=== PATIENT | male | born 1990 | race Two or more races ===

== ENCOUNTER 2025-08-29 00:54 | Emergency (ER) | payer BC, SELFPAY ==
--- NOTE | 2025-08-29 00:59 | EKG_ITS ---
[facility] Test Date: 2025-08-29 Pat Name: WENDY SEWELL Department: Room: - Gender: Male [employer] Supervisor: : [id number] Requested By: ED Temporary Provider Order Number: [id number] Reading MD: ED Temporary Provider Measurements Intervals [place] Rate: 87 P: 10 LA: 124 QRS: -4 QRSD: 106 T: 36 QT: 338 QTc: 408 Interpretive Statements SINUS RHYTHM No previous ECG available for comparison /store/S0/[id number]/ecg/[id number].pdf
[2025-08-29 01:10] VITALS: BP 136/88; PULSE 85; RESP 20; TEMP 38.1; O2SAT 97; BMI 30.3
--- NOTE | 2025-08-29 01:36 | PD.EDURI ---
Upper Respiratory Inf. RME/HPI General Chief Complaint: Fever Stated Complaint: 3 days of fever with sob, chestpain, & cough Time Seen by Provider: 08/29/25 01:29 Arrival date/time: 08/29/25 00:54 35M with history of HTN presents to ED with several days of cough, fevers/chills, SPANN, and some CP/SOB when coughing. Limitations: no limitations Related Data Previous Rx's ?Medication ?Instructions ?Recorded baclofen 20 mg tablet 20 mg PO Q8H PRN pain #30 tabs 03/09/19 methylprednisolone 4 mg tablets in See Rx Instructions PO PER PKG DIR 03/09/19 a dose pack (Medrol (Aravind)) #21 tabs cyclobenzaprine 10 mg tablet 10 mg PO TID #30 tabs 09/30/19 ibuprofen 800 mg tablet 800 mg PO TID #30 tabs 09/30/19 etodolac 400 mg tablet 400 mg PO Q8H PRN pain #30 tabs 10/04/19 methocarbamol 750 mg tablet 750 mg PO TID PRN pain #30 tabs 10/04/19 (Robaxin-750) tramadol 50 mg tablet 50 mg PO Q8H PRN pain #15 tabs 10/04/19 amoxicillin 875 mg-potassium 1 tab PO BID #14 tabs 07/20/23 clavulanate 125 mg tablet cetirizine 5 mg-pseudoephedrine ER 1 tab PO Q12H #14 tabs 07/20/23 120 mg tablet,extended release,12hr (Zyrtec-D) Allergies Allergy/AdvReac Type Severity Reaction Status Date / Time No Known Allergies Allergy Verified 08/29/25 00:58 Review of Systems Review of Systems Systems Reviewed: All systems reviewed, normal except as documented Constitutional Constitutional: Reports as per HPI, Reports chills, Reports fever(s) and Reports headache(s) ENT Ears, Nose, Mouth, and Throat: Reports headache(s) Cardiovascular Cardiovascular: Reports dyspnea Respiratory Respiratory: Reports as per HPI, Reports cough, Reports dyspnea and Reports pain with cough Neurologic Neurologic: Reports headache(s) Past Medical History Past Medical History CARDIAC: Negative Congestive Heart Failure RESPIRATORY: Negative Chronic Obstructive Pulmonary Disease (COPD) GENITOURINARY: Negative Renal Disease ENDOCRINE: Negative Diabetes Mellitus Type 1 or Diabetes Mellitus Type 2 Social History SMOKING STATUS: Never smoker ED Exam General Limitations: Present no limitations General appearance: Present alert and in no apparent distress Head Head exam: Present atraumatic ENT ENT exam: Present normal exam, normal oropharynx and mucous membranes moist Neck Neck exam: Present normal inspection, full ROM and trachea midline Chest Chest inspection: Present normal inspection and symmetric chest wall rise Respiratory Respiratory exam: Present normal lung sounds bilaterally Neurological Exam Neurological exam: Present alert and oriented X3 Psychiatric Psychiatric exam: Present normal affect and normal mood Skin Skin exam: Present warm, dry, intact and normal color Course Quality Measures none Orders Category Date Time Status Bedside COVID-19 Antigen Test NOW Care 08/29/25 01:34 Active Bedside Influenza A&B Antigen Test NOW Care 08/29/25 01:29 Completed EKG (ED ONLY) *Do not use* NOW Care 08/29/25 00:59 Completed EKG (ED Only) Stat Exams 08/29/25 00:59 Draft DiphenhydrAMINE [Benadryl] Med 08/29/25 01:29 Discontinued 25 mg PO X1 ONE Naproxen [Naprosyn] Med 08/29/25 01:29 Discontinued 500 mg PO X1 ONE Vital Signs Vital signs: Vital Signs Temperature 100.5 F H 08/29/25 01:10 Pulse Rate 85 08/29/25 01:10 Respiratory Rate 20 08/29/25 01:10 Blood Pressure 136/88 H 08/29/25 01:10 Pulse Oximetry (%) 97 08/29/25 01:10 Oxygen Delivery Method Room Air 08/29/25 01:10 O2 at 97% on RA and WNLs Upper Respiratory Infection MDM Narrative MDM Narrative:: 35M with history of HTN presents to ED with several days of cough, fevers/chills, SPANN, and some CP/SOB when coughing. Physical exam reveals clear oropharynx and lungs. Normal WOB. Patient is mildly febrile, but does not appear toxic. EKG is NSR. Bedside flu B+. Meds and clinical mental health counselor given. Patient data External records reviewed:: [facility] previous records Clinical information provided by:: patient Social determinants that could affect healthcare access:: none Patient has the following chronic illnesses:: none How is presenting disease/condition affected by chronic disease/condition?: no chronic disease Evaluation data The following diagnostics were reviewed and interpreted by me:: lab results and EKG tracing(s) Lab and/or radiology exams considered but not ordered:: ordered Interpretation Summary: above Medications / Prescriptions Medications or Prescriptions considered but not ordered:: ordered Medication administrations:: Medication Administration History Discontinued Medications Diphenhydramine HCl (Diphenhydramine 25 Mg Capsule) 25 mg PO X1 ONE Stop: 08/29/25 01:30 Naproxen (Naproxen 250 Mg Tablet) 500 mg PO X1 ONE Stop: 08/29/25 01:30 above Consultations Consultation(s) initiated? (list below): No Diagnosis Upper Respiratory Differential Diagnosis: upper respiratory infection, croup, otitis media, sinusitis, viral infection, bronchitis, influenza and pharyngitis Most likely diagnosis given after review of the tests above:: Flu B Admission Indicated Admission indicated?: not indicated Admission Request Was there a request for admission?: No Disposition Plan Disposition Plan: Discharge Discharge Attestation Discharge Attestation: The patient and all family members were given an opportunity to ask questions and understood the discharge instructions. Discharge instructions specifically effects, indications for sooner follow up or return to the emergency department, and the expected course of current diagnosis. Patient condition: Stable Discharge Plan Plan Patient Disposition: HOME (Self Care) Discharge Disposition comment: Stable Prescriptions/Referrals Prescriptions/Med Rec: No Action baclofen 20 mg tablet 20 mg PO Q8H PRN (Reason: pain) Qty: 30 0RF methylprednisolone [Medrol (Aravind)] 4 mg tablets,dose pack See Rx Instructions PO PER PKG DIR Qty: 21 0RF Rx Instructions: PO PER PKG DIR ibuprofen 800 mg tablet 800 mg PO TID Qty: 30 0RF cyclobenzaprine 10 mg tablet 10 mg PO TID Qty: 30 0RF methocarbamol [Robaxin-750] 750 mg tablet 750 mg PO TID PRN (Reason: pain) Qty: 30 0RF etodolac 400 mg tablet 400 mg PO Q8H PRN (Reason: pain) Qty: 30 0RF tramadol 50 mg tablet 50 mg PO Q8H PRN (Reason: pain) Qty: 15 0RF amoxicillin-pot clavulanate 875-125 mg tablet 1 tab PO BID Qty: 14 0RF cetirizine-pseudoephedrine [Zyrtec-D] 5-120 mg tablet extended release 12 hr 1 tab PO Q12H Qty: 14 0RF Problem List Clinical Impression: Influenza B Patient/Caregiver Discharge Instructions Education Materials: ED Influenza (Adult) Additional Instructions: Please follow-up with PCP within 24-48 hours and return immediately if symptoms worsen. Ibuprofen/Tylenol can be used simultaneously for greater fever/pain control. Benadryl is good for cough, congestion, and sleep. Keep hydrated. Advance diet as tolerated. Print Language: Frisian Stand Alone Forms: Patient Portal Info Letter PA/REGISTRATION SPECIALIST Supervising Physician PA/REGISTRATION SPECIALIST Supervising Physician: Dr. Mccormick
[2025-08-29] MEDS: NAPROXEN 250 MG TABLET 500 MG PO (02:08)
== END 2025-08-29 02:30 | disposition home or self-care (01) ==
LOC: SERX 02:13
PROVIDERS: Emergency Provider Emergency Medicine
DX: J10.1 Influenza due to other identified influenza virus with other respiratory manifestations (principal)
CPT/HCPCS: 87502; 87635; 93005; 99282; A9270